=== PATIENT | female | born 1985 | race Caucasian/White ===

== ENCOUNTER 2017-01-23 14:52 | Emergency (ER) | payer OTHER | END 2017-01-23 16:01 | disposition home or self-care (01) | LOC: ER1 14:52 | DX: S93.491A Sprain of other ligament of right ankle, initial encounter (principal); W01.0XXA Fall on same level from slipping, tripping and stumbling without subsequent striking against object, initial encounter; X50.1XXA Overexertion from prolonged static or awkward postures, initial encounter; Y92.009 Unspecified place in unspecified non-institutional (private) residence as the place of occurrence of the external cause | CPT/HCPCS: 73590; 73610; 73630; 99283 ==

== ENCOUNTER 2017-02-03 10:27 | Emergency (ER) | payer OTHER ==
[2017-02-03 12:29] LABS: HEMOGLOBIN 14.8 gm/dl (12.3-15.3); RED BLOOD COUNT 4.83 M/UL (4.00-5.10)
[2017-02-03 12:45] LABS: BUN/CREATININE RATIO 12 (0-10)
== END 2017-02-03 17:40 | disposition home or self-care (01) ==
LOC: ER1 10:27
PROVIDERS: Specialist/Technologist Athletic Trainer
DX: N20.0 Calculus of kidney (principal); N28.1 Cyst of kidney, acquired; R82.4 Acetonuria; R31.9 Hematuria, unspecified; R73.9 Hyperglycemia, unspecified; K76.0 Fatty (change of) liver, not elsewhere classified; G40.909 Epilepsy, unspecified, not intractable, without status epilepticus; Z90.49 Acquired absence of other specified parts of digestive tract; Z88.1 Allergy status to other antibiotic agents; Z88.2 Allergy status to sulfonamides; Z79.899 Other long term (current) drug therapy
CPT/HCPCS: 80053; 81001; 83690; 85025; 96374; 96375; 99284; J2270; J2550

== ENCOUNTER 2017-02-12 08:17 | Emergency (ER) | payer OTHER ==
[2017-02-12 09:11] LABS: RED BLOOD COUNT 4.58 M/UL (4.00-5.10); WHITE BLOOD COUNT 10.2 K/UL (4.5-11.0)
[2017-02-12 09:29] LABS: BUN/CREATININE RATIO 12 (0-10)
== END 2017-02-12 10:40 | disposition home or self-care (01) ==
LOC: ER1 08:17
PROVIDERS: Physician Assistant
DX: R10.9 Unspecified abdominal pain (principal); R31.9 Hematuria, unspecified; R11.2 Nausea with vomiting, unspecified; Z90.49 Acquired absence of other specified parts of digestive tract; Z88.1 Allergy status to other antibiotic agents; Z88.2 Allergy status to sulfonamides; Z91.041 Radiographic dye allergy status
CPT/HCPCS: 36415; 80053; 81001; 84703; 85025; 87086; 96374; 96375; 99284; J2270; J2405; J7030

== ENCOUNTER 2017-02-28 09:21 | Emergency (ER) | payer OTHER ==
[2017-02-28 10:01] LABS: HEMOGLOBIN 14.7 gm/dl (12.3-15.3); RED BLOOD COUNT 4.8 M/UL (4.00-5.10); WHITE BLOOD COUNT 11.2 K/UL (4.5-11.0)
[2017-02-28 10:21] LABS: BUN/CREATININE RATIO 13 (0-10)
== END 2017-02-28 12:22 | disposition home or self-care (01) ==
LOC: ER1 09:21
PROVIDERS: Physician Assistant
DX: N39.0 Urinary tract infection, site not specified (principal); R31.9 Hematuria, unspecified; G40.909 Epilepsy, unspecified, not intractable, without status epilepticus; Z88.6 Allergy status to analgesic agent; Z90.49 Acquired absence of other specified parts of digestive tract; Z79.899 Other long term (current) drug therapy
CPT/HCPCS: 36415; 80053; 81001; 83690; 84703; 85025; 96361; 96374; 96375; 99284; J2270; J2405; J7030

== ENCOUNTER 2017-03-03 18:01 | Emergency (ER) | payer OTHER ==
[2017-03-04] MEDS ORDERED: NEURONTIN 400400 MG PO (21:10)
== END 2017-03-03 19:40 | disposition left against medical advice (07) ==
LOC: ER1 18:01
DX: Z53.21 Procedure and treatment not carried out due to patient leaving prior to being seen by health care provider (principal)
CPT/HCPCS: J7030

== ENCOUNTER 2017-03-04 10:16 | Inpatient (IN) | payer OTHER ==
[~2017-03-04] VITALS: Ht 165.1 cm; Wt 117.9 kg
[2017-03-04 12:14] LABS: HEMOGLOBIN 14.5 gm/dl (12.3-15.3); RED BLOOD COUNT 4.75 M/UL (4.00-5.10); WHITE BLOOD COUNT 9.8 K/UL (4.5-11.0)
[2017-03-04 12:29] LABS: BUN/CREATININE RATIO 10 (0-10)
[2017-03-04] MEDS ORDERED: NEURONTIN 400400 MG PO (21:10)
[2017-03-05 04:53] LABS: HEMOGLOBIN 13.2 gm/dl (12.3-15.3); RED BLOOD COUNT 4.37 M/UL (4.00-5.10); WHITE BLOOD COUNT 11.2 K/UL (4.5-11.0)
[2017-03-05 05:20] LABS: BUN/CREATININE RATIO 11 (0-10)
[2017-03-05] MEDS ORDERED: KLONOPIN TAB 00.5 MG PO (11:09)
[2017-03-05] MEDS ORDERED: NITROSTAT 0.40.4 MG SL (11:09)
[2017-03-05] MEDS ORDERED: VITAMIN D350000 UNIT PO (11:10)
[2017-03-05] MEDS ORDERED: DICLOFENAC SODI75 MG PO (11:17)
[2017-03-05] MEDS ORDERED: PREDNISONE 50 M50 MG PO (11:18)
[2017-03-05] MEDS ORDERED: CYMBALTA60 MG PO (11:18)
[2017-03-07] MEDS ORDERED: OMNICEF 300 MG300 MG PO (15:34)
[2017-03-10 05:07] LABS: HEMOGLOBIN 12.9 gm/dl (12.3-15.3); RED BLOOD COUNT 4.29 M/UL (4.00-5.10); WHITE BLOOD COUNT 10.7 K/UL (4.5-11.0)
[2017-03-10 05:23] LABS: BUN/CREATININE RATIO 15 (0-10)
[2017-03-10] MEDS ORDERED: OXYCODONE HCL5 MG PO (18:14)
[2017-03-10] MEDS ORDERED: PHENERGAN 12.12.5 M1 PO (18:15)
== END 2017-03-10 18:38 | disposition home or self-care (01) | DRG 690 ==
LOC: ER1 10:16 → ZEROF 14:33 → MED SURG 4 14:33
PROVIDERS: Physician Assistant; Surgery; ADMIT Hospitalist
DX: N10 Acute pyelonephritis (principal); Z68.41 Body mass index [BMI] 40.0-44.9, adult; B96.20 Unspecified Escherichia coli [E. coli] as the cause of diseases classified elsewhere; K76.0 Fatty (change of) liver, not elsewhere classified; R11.2 Nausea with vomiting, unspecified; Z87.442 Personal history of urinary calculi; G40.909 Epilepsy, unspecified, not intractable, without status epilepticus; Z79.899 Other long term (current) drug therapy; Z88.8 Allergy status to other drugs, medicaments and biological substances; Z91.041 Radiographic dye allergy status; N92.0 Excessive and frequent menstruation with regular cycle; D25.9 Leiomyoma of uterus, unspecified; R10.2 Pelvic and perineal pain; N80.9 Endometriosis, unspecified; E66.01 Morbid (severe) obesity due to excess calories; N28.9 Disorder of kidney and ureter, unspecified
CPT/HCPCS: 36415; 80048; 80053; 81001; 83605; 83690; 84703; 85025; 85027; 87040; 87077; 87086; 87186; 96374; 96375; 99284; C9113; G0378; J0696; J1956; J2270; J2405; J2550; J7030; J7050

== ENCOUNTER 2017-03-13 12:21 | Emergency (ER) | payer OTHER ==
[~2017-03-13 12:21] MED LIST: CYMBALTA60 MG PO; DICLOFENAC SODI75 MG PO; KLONOPIN TAB 00.5 MG PO; NEURONTIN 400400 MG PO; NITROSTAT 0.40.4 MG SL; OMNICEF 300 MG300 MG PO; OXYCODONE HCL5 MG PO; PHENERGAN 12.12.5 M1 PO; PREDNISONE 50 M50 MG PO; VITAMIN D350000 UNIT PO
[2017-03-13 12:54] LABS: HEMOGLOBIN 14.2 gm/dl (12.3-15.3); RED BLOOD COUNT 4.6 M/UL (4.00-5.10); WHITE BLOOD COUNT 10.6 K/UL (4.5-11.0)
[2017-03-13 13:09] LABS: BUN/CREATININE RATIO 13 (0-10)
== END 2017-03-13 15:00 | disposition home or self-care (01) ==
LOC: ER1 12:21
PROVIDERS: Emergency Medicine
DX: R10.84 Generalized abdominal pain (principal); N28.9 Disorder of kidney and ureter, unspecified; R11.2 Nausea with vomiting, unspecified; R19.7 Diarrhea, unspecified; Z88.1 Allergy status to other antibiotic agents; Z88.2 Allergy status to sulfonamides; Z88.6 Allergy status to analgesic agent; Z91.041 Radiographic dye allergy status
CPT/HCPCS: 36415; 80053; 81001; 82150; 83690; 84703; 85025; 96361; 96374; 99284; J1885; J2405; J7030

== ENCOUNTER 2017-03-27 15:55 | Emergency (ER) | payer OTHER ==
[2017-03-27 18:49] LABS: HEMOGLOBIN 13.5 gm/dl (12.3-15.3); RED BLOOD COUNT 4.44 M/UL (4.00-5.10); WHITE BLOOD COUNT 11.1 K/UL (4.5-11.0)
[2017-03-27 19:14] LABS: BUN/CREATININE RATIO 11 (0-10)
== END 2017-03-27 19:13 | disposition home or self-care (01) ==
LOC: ER1 15:55
PROVIDERS: Emergency Medicine
DX: T39.1X1A Poisoning by 4-Aminophenol derivatives, accidental (unintentional), initial encounter (principal); T39.311A Poisoning by propionic acid derivatives, accidental (unintentional), initial encounter; T43.211A Poisoning by selective serotonin and norepinephrine reuptake inhibitors, accidental (unintentional), initial encounter; T45.0X1A Poisoning by antiallergic and antiemetic drugs, accidental (unintentional), initial encounter; G40.909 Epilepsy, unspecified, not intractable, without status epilepticus; G89.29 Other chronic pain
CPT/HCPCS: 71010; 80053; 80307; 81001; 82550; 82553; 83874; 84484; 84703; 85025; 93005; 99284; G0480

== ENCOUNTER 2020-12-15 10:43 | Emergency (ER) | payer OTHER ==
[~2020-12-15 10:43] MED LIST changes: +CEFUROXIME500 MG PO; +CLINDAMYCIN HC300 MG PO; +CYCLOBENZAPRINE10 MG PO; +DIFLUCAN150 MG PO; +HYDROCODON-ACE1 EAC4 PO; +LEVAQUIN750 MG PO; +MONISTAT 7 CREA45 GM PV; +NORCO 7.5-3251 EACH PO; +PERCOCET 5-3251 EACH PO; +PERCOCET 5/325 T1 EA PO; +PHENERGAN 25 MG25 M1 PO; +PYRIDIUM100 MG PO; +PYRIDIUM200 MG PO; +ULTRAM50 MG PO; +XYLOCAINE 2% JE30 ML TOP; +ZOFRAN ODT 4 MG4 MG GT; +ZOFRAN ODT 4 MG4 MG PO; +ZOFRAN ODT 4 MG4 MG SL; +ZOFRAN4 MG PO
[2020-12-15 12:42] LABS: HEMOGLOBIN 14.6 gm/dl (12.3-15.3); RED BLOOD COUNT 4.56 M/UL (4.00-5.10)
[2020-12-15 12:58] LABS: BUN/CREATININE RATIO 10 (0-10)
[2020-12-15] MEDS ORDERED: TYLENOL 500 MG500 MG PO (19:50)
[2020-12-15] MEDS ORDERED: ZOFRAN 4 MG TAB4 MG PO (19:50)
== END 2020-12-15 20:30 | disposition home or self-care (01) ==
LOC: ER1 10:43
PROVIDERS: Emergency Medicine
DX: R10.9 Unspecified abdominal pain (principal); R11.2 Nausea with vomiting, unspecified; I10 Essential (primary) hypertension; E11.9 Type 2 diabetes mellitus without complications; Z87.442 Personal history of urinary calculi; Z90.49 Acquired absence of other specified parts of digestive tract; Z90.710 Acquired absence of both cervix and uterus
CPT/HCPCS: 76830; 80053; 81001; 83690; 85025; 87086; 96372; 96374; 96375; 96376; 99284; J1335; J2270; J2405; J2550; J7030

== ENCOUNTER 2020-12-17 09:00 | Emergency (ER) | payer OTHER ==
[~2020-12-17 09:00] MED LIST changes: +TYLENOL 500 MG500 MG PO; +ZOFRAN 4 MG TAB4 MG PO
[2020-12-17 11:20] LABS: HEMOGLOBIN 14.3 gm/dl (12.3-15.3); RED BLOOD COUNT 4.48 M/UL (4.00-5.10); WHITE BLOOD COUNT 13.9 K/UL (4.5-11.0)
[2020-12-17 11:41] LABS: BUN/CREATININE RATIO 22 (0-10)
[2020-12-17] MEDS ORDERED: LEVOFLOXACIN750 MG PO (15:06)
[2020-12-17] MEDS ORDERED: PHENERGAN 25 MG25 M1 PO (15:06)
[2020-12-17] MEDS ORDERED: BENTYL 20MG TAB20 MG PO (15:06)
== END 2020-12-17 12:19 | disposition home or self-care (01) ==
LOC: ER1 09:00
PROVIDERS: Emergency Medicine
DX: R10.84 Generalized abdominal pain (principal); R31.9 Hematuria, unspecified; Z90.49 Acquired absence of other specified parts of digestive tract; Z90.710 Acquired absence of both cervix and uterus; Z88.1 Allergy status to other antibiotic agents; Z88.2 Allergy status to sulfonamides; Z88.6 Allergy status to analgesic agent; Z91.041 Radiographic dye allergy status
CPT/HCPCS: 80053; 81001; 83690; 85025; 96372; 96374; 99284; J0500; J0696; J2405; J2550

== ENCOUNTER 2020-12-31 09:18 | Emergency (ER) | payer OTHER ==
[~2020-12-31 09:18] MED LIST changes: +BENTYL 20MG TAB20 MG PO; +LEVOFLOXACIN750 MG PO
[2020-12-31 10:41] LABS: HEMOGLOBIN 14.7 gm/dl (12.3-15.3); RED BLOOD COUNT 4.68 M/UL (4.00-5.10); WHITE BLOOD COUNT 6.9 K/UL (4.5-11.0)
[2020-12-31 11:01] LABS: BUN/CREATININE RATIO 20 (0-10)
[2020-12-31] MEDS ORDERED: PYRIDIUM200 MG PO (13:25)
[2020-12-31] MEDS ORDERED: MACROBID 100 M100 M1 PO (13:25)
== END 2020-12-31 15:25 | disposition home or self-care (01) ==
LOC: ER1 09:18
PROVIDERS: Physician Assistant
DX: U07.1 COVID-19 (principal); J12.82 Pneumonia due to coronavirus disease 2019; N39.0 Urinary tract infection, site not specified; E11.9 Type 2 diabetes mellitus without complications; I10 Essential (primary) hypertension; E78.5 Hyperlipidemia, unspecified; Z90.89 Acquired absence of other organs; Z90.710 Acquired absence of both cervix and uterus; Z88.2 Allergy status to sulfonamides; Z88.6 Allergy status to analgesic agent; Z91.041 Radiographic dye allergy status; Z88.1 Allergy status to other antibiotic agents
CPT/HCPCS: 0240U; 80053; 81001; 83690; 85025; 87086; 96374; 96375; 99284; J2270; J2405; J7030; M0239

== ENCOUNTER 2021-02-14 10:41 | Emergency (ER) | payer OTHER ==
[~2021-02-14 10:41] MED LIST changes: +MACROBID 100 M100 M1 PO
[2021-02-14 13:00] LABS: HEMOGLOBIN 14.8 gm/dl (12.3-15.3); RED BLOOD COUNT 4.74 M/UL (4.00-5.10); WHITE BLOOD COUNT 11.6 K/UL (4.5-11.0)
[2021-02-14 13:18] LABS: BUN/CREATININE RATIO 21 (0-10)
== END 2021-02-14 14:15 | disposition home or self-care (01) ==
LOC: ER1 10:41
PROVIDERS: Physician Assistant
DX: R10.9 Unspecified abdominal pain (principal); I10 Essential (primary) hypertension; E11.9 Type 2 diabetes mellitus without complications; Z90.710 Acquired absence of both cervix and uterus; Z90.49 Acquired absence of other specified parts of digestive tract; Z88.2 Allergy status to sulfonamides; Z79.4 Long term (current) use of insulin
CPT/HCPCS: 80053; 81001; 85025; 87086; 99284

== ENCOUNTER 2021-04-15 14:21 | Emergency (ER) | payer OTHER ==
[2021-04-15] MEDS ORDERED: OMNICEF 300 MG300 MG PO (17:51)
[2021-04-15] MEDS ORDERED: HYDROCODONE-AC1 EACH PO ×2 (17:54→18:54)
[2021-04-15] MEDS ORDERED: ZOFRAN ODT 4 MG4 MG SL (18:53)
== END 2021-04-15 18:05 | disposition home or self-care (01) ==
LOC: ER1 14:21
DX: N20.0 Calculus of kidney (principal); N39.0 Urinary tract infection, site not specified
CPT/HCPCS: 81001; 87086; 96374; 96375; 99284; J2270; J2405; J7030; J7120

== ENCOUNTER 2021-05-27 10:34 | Emergency (ER) | payer OTHER ==
[~2021-05-27 10:34] MED LIST changes: +HYDROCODONE-AC1 EACH PO
[2021-05-27 11:03] LABS: HEMOGLOBIN 14.5 gm/dl (12.3-15.3); RED BLOOD COUNT 4.59 M/UL (4.00-5.10); WHITE BLOOD COUNT 11.9 K/UL (4.5-11.0)
[2021-05-27 11:33] LABS: BUN/CREATININE RATIO 10 (0-10)
[2021-05-27] MEDS ORDERED: OMNICEF 300 MG300 MG PO (13:39)
== END 2021-05-27 14:25 | disposition home or self-care (01) ==
LOC: ER1 10:34
PROVIDERS: Emergency Medicine
DX: N39.0 Urinary tract infection, site not specified (principal); N83.8 Other noninflammatory disorders of ovary, fallopian tube and broad ligament; I10 Essential (primary) hypertension; Z87.442 Personal history of urinary calculi
CPT/HCPCS: 80053; 81001; 83690; 85025; 87086; 96374; 96375; 99284; J0696; J2270; J2405

== ENCOUNTER 2021-06-04 09:14 | Emergency (ER) | payer OTHER ==
[2021-06-04 10:51] LABS: HEMOGLOBIN 13.9 gm/dl (12.3-15.3); RED BLOOD COUNT 4.33 M/UL (4.00-5.10); WHITE BLOOD COUNT 9.9 K/UL (4.5-11.0)
[2021-06-04 11:32] LABS: BUN/CREATININE RATIO 10 (0-10)
[2021-06-06 17:11] LABS: CHLAMYDIA TRACHOMATIS, NAA Negative (Negative); NEISSERIA GONORRHOEAE, NAA Negative (Negative)
== END 2021-06-04 13:42 | disposition home or self-care (01) ==
LOC: ER1 09:14
PROVIDERS: Physician Assistant
DX: N83.202 Unspecified ovarian cyst, left side (principal); E11.9 Type 2 diabetes mellitus without complications; Z88.2 Allergy status to sulfonamides; Z90.49 Acquired absence of other specified parts of digestive tract; Z88.8 Allergy status to other drugs, medicaments and biological substances
CPT/HCPCS: 76856; 80053; 81001; 83690; 84703; 85025; 87086; 96374; 99284; J2405; J7030

== ENCOUNTER 2021-06-13 08:47 | Emergency (ER) | payer OTHER ==
[2021-06-14] MEDS ORDERED: HYDROCODON-ACE1 EAC4 PO (08:09)
== END 2021-06-13 12:31 | disposition home or self-care (01) ==
LOC: ER1 08:47
DX: M54.2 Cervicalgia (principal); M54.9 Dorsalgia, unspecified; I10 Essential (primary) hypertension; Z88.2 Allergy status to sulfonamides; Z88.1 Allergy status to other antibiotic agents; Z88.6 Allergy status to analgesic agent; Z88.8 Allergy status to other drugs, medicaments and biological substances; V49.50XA Passenger injured in collision with unspecified motor vehicles in traffic accident, initial encounter; Y92.410 Unspecified street and highway as the place of occurrence of the external cause
CPT/HCPCS: 71046; 72125; 72128; 72131; 81001; 84703; 99284

== ENCOUNTER 2021-06-14 03:37 | Emergency (ER) | payer OTHER ==
[2021-06-14 04:16] LABS: HEMOGLOBIN 13.2 gm/dl (12.3-15.3); RED BLOOD COUNT 4.19 M/UL (4.00-5.10); WHITE BLOOD COUNT 8.5 K/UL (4.5-11.0)
[2021-06-14 04:40] LABS: BUN/CREATININE RATIO 14 (0-10)
[2021-06-14] MEDS ORDERED: HYDROCODON-ACE1 EAC4 PO (08:09)
== END 2021-06-14 09:55 | disposition home or self-care (01) ==
LOC: ER1 03:37
PROVIDERS: Physician Assistant
DX: S13.4XXA Sprain of ligaments of cervical spine, initial encounter (principal); S23.3XXA Sprain of ligaments of thoracic spine, initial encounter; S33.5XXA Sprain of ligaments of lumbar spine, initial encounter; E11.9 Type 2 diabetes mellitus without complications; I10 Essential (primary) hypertension; V49.40XA Driver injured in collision with unspecified motor vehicles in traffic accident, initial encounter; Y92.410 Unspecified street and highway as the place of occurrence of the external cause
CPT/HCPCS: 70450; 80053; 85025; 99284; Q9967

== ENCOUNTER 2021-07-22 09:03 | Emergency (ER) | payer OTHER ==
[2021-07-22 09:43] LABS: HEMOGLOBIN 13.4 gm/dl (12.3-15.3); RED BLOOD COUNT 4.43 M/UL (4.00-5.10); WHITE BLOOD COUNT 11.5 K/UL (4.5-11.0)
[2021-07-22 10:07] LABS: BUN/CREATININE RATIO 11 (0-10)
== END 2021-07-22 10:30 | disposition left against medical advice (07) ==
LOC: ER1 09:03
PROVIDERS: Physician Assistant
DX: R10.32 Left lower quadrant pain (principal); M54.5 Low back pain; R31.9 Hematuria, unspecified; Z88.2 Allergy status to sulfonamides; Z88.1 Allergy status to other antibiotic agents; Z91.041 Radiographic dye allergy status; Z88.8 Allergy status to other drugs, medicaments and biological substances
CPT/HCPCS: 80053; 81001; 85025; 99284

== ENCOUNTER 2021-08-11 10:39 | Emergency (ER) | payer OTHER ==
[2021-08-11 11:29] LABS: HEMOGLOBIN 14.5 gm/dl (12.3-15.3); RED BLOOD COUNT 4.53 M/UL (4.00-5.10); WHITE BLOOD COUNT 10.9 K/UL (4.5-11.0)
[2021-08-11 12:06] LABS: BUN/CREATININE RATIO 10 (0-10)
== END 2021-08-11 14:38 | disposition home or self-care (01) ==
LOC: ER1 10:39
PROVIDERS: Physician Assistant
DX: S63.502A Unspecified sprain of left wrist, initial encounter (principal); I10 Essential (primary) hypertension; Z88.1 Allergy status to other antibiotic agents; W10.9XXA Fall (on) (from) unspecified stairs and steps, initial encounter; Y92.009 Unspecified place in unspecified non-institutional (private) residence as the place of occurrence of the external cause
CPT/HCPCS: 29125; 71045; 73110; 73130; 80053; 82550; 82553; 83874; 84484; 85025; 93005; 99284

== ENCOUNTER 2021-08-17 10:12 | Emergency (ER) | payer OTHER | END 2021-08-17 10:40 | disposition left against medical advice (07) | LOC: ER1 10:12 | DX: Z53.21 Procedure and treatment not carried out due to patient leaving prior to being seen by health care provider (principal) | CPT/HCPCS: 99281 ==

== ENCOUNTER 2021-12-31 11:36 | Emergency (ER) | payer OTHER ==
[2021-12-31 13:23] LABS: RED BLOOD COUNT 4.7 M/UL (4.00-5.10); WHITE BLOOD COUNT 13.7 K/UL (4.5-11.0)
[2021-12-31 13:55] LABS: BUN/CREATININE RATIO 18 (0-10)
[2021-12-31] MEDS ORDERED: IBUPROFEN600 MG PO (14:19)
[2022-01-01] MEDS ORDERED: HYDROCODONE-AC1 EACH PO (13:37)
[2022-01-01] MEDS ORDERED: FLOMAX 0.4 MG0.4 MG PO (13:54)
[2022-01-01] MEDS ORDERED: ONDANSETRON ODT4 MG SL (13:54)
== END 2021-12-31 15:05 | disposition home or self-care (01) ==
LOC: ER1 11:36
PROVIDERS: Nurse Practitioner
DX: N20.0 Calculus of kidney (principal); N83.8 Other noninflammatory disorders of ovary, fallopian tube and broad ligament; E11.9 Type 2 diabetes mellitus without complications; I10 Essential (primary) hypertension; Z88.6 Allergy status to analgesic agent; Z88.2 Allergy status to sulfonamides; Z88.1 Allergy status to other antibiotic agents; Z88.8 Allergy status to other drugs, medicaments and biological substances
CPT/HCPCS: 80053; 81001; 85025; 87086; 96374; 96375; 96376; 99284; J2270; J2405; J7030

== ENCOUNTER 2022-01-01 11:40 | Emergency (ER) | payer OTHER ==
[~2022-01-01 11:40] MED LIST changes: +IBUPROFEN600 MG PO
[2022-01-01 12:40] LABS: HEMOGLOBIN 14.4 gm/dl (12.3-15.3); RED BLOOD COUNT 4.57 M/UL (4.00-5.10); WHITE BLOOD COUNT 15.7 K/UL (4.5-11.0)
[2022-01-01 13:02] LABS: BUN/CREATININE RATIO 11 (0-10)
[2022-01-01] MEDS ORDERED: HYDROCODONE-AC1 EACH PO (13:37)
[2022-01-01] MEDS ORDERED: ONDANSETRON ODT4 MG SL (13:54)
[2022-01-01] MEDS ORDERED: FLOMAX 0.4 MG0.4 MG PO (13:54)
== END 2022-01-01 14:31 | disposition home or self-care (01) ==
LOC: ER1 11:40
PROVIDERS: Physician Assistant
DX: N83.202 Unspecified ovarian cyst, left side (principal); E11.9 Type 2 diabetes mellitus without complications; I10 Essential (primary) hypertension; Z90.710 Acquired absence of both cervix and uterus; R31.9 Hematuria, unspecified
CPT/HCPCS: 80053; 81001; 83690; 85025; 87086; 96374; 96375; 99285; J1170; J2270; J2405; J7030